=== PATIENT | male | born 1990 | race Caucasian/White ===

== ENCOUNTER 2019-10-01 12:24 | Emergency (ER) | payer MEDICAID ==
[~2019-10-01] VITALS: Ht 167.6 cm; Wt 78.0 kg
[2019-10-01 12:42] VITALS: Ht 167.6 cm; Wt 78.0 kg
[2019-10-01 14:36] LABS: BASOPHIL % 0.6 % (0-2); PLATELET COUNT 290 x10^3mcL (130-400); RED CELL DISTRIBUTION WIDTH 13.4 % (11.5-14.5)
[2019-10-01 14:50] LABS: CALCIUM 8.2 mg/dL (8.5-10.1); CARBON DIOXIDE 24.1 mmol/L (21-32); CHLORIDE SERUM 106 mmol/L (98-107); CREATININE SERUM 0.8 mg/dL (0.7-1.3); GFR1 > 60 mL/min; GLUCOSE SERUM 117 mg/dL (74-106); POTASSIUM SERUM 3.7 mmol/L (3.5-5.1); SODIUM SERUM 141 mmol/L (136-145)
[2019-10-01 14:55] LABS: ALBUMIN 3.7 g/dL (3.4-5.0); ALKALINE PHOSPHATASE 79 U/L (46-116); ALT/SGPT 54 U/L (16-63); AST/SGOT 28 U/L (15-37); BILIRUBIN TOTAL 0.1 mg/dL (0.20-1.00); TOTAL PROTEIN, SERUM 7.4 g/dL (6.4-8.2)
[2019-10-01 17:08] VITALS: BP 132/76
== END 2019-10-01 17:08 | disposition home or self-care (01) ==
LOC: ED 12:24
PROVIDERS: Student in an Organized Health Care Education/Training Program
DX: L03.114 Cellulitis of left upper limb (principal)
CPT/HCPCS: J3490; J7030; J7060

== ENCOUNTER 2019-10-02 16:37 | Emergency (ER) | payer MEDICAID ==
[~2019-10-02] VITALS: Ht 167.6 cm; Wt 80.3 kg
[2019-10-02 16:41] VITALS: BP 146/79; Ht 167.6 cm; Wt 80.3 kg
== END 2019-10-02 17:16 | disposition home or self-care (01) ==
LOC: ED 16:37
DX: L02.414 Cutaneous abscess of left upper limb (principal); I10 Essential (primary) hypertension; Z48.01 Encounter for change or removal of surgical wound dressing; Z88.2 Allergy status to sulfonamides

== ENCOUNTER 2019-10-03 11:06 | Emergency (ER) | payer MEDICAID ==
[~2019-10-03] VITALS: Ht 167.6 cm; Wt 79.4 kg
[2019-10-03 11:24] VITALS: BP 124/88; Ht 167.6 cm; Wt 79.4 kg
== END 2019-10-03 13:33 | disposition home or self-care (01) ==
LOC: ED 11:06
DX: L02.414 Cutaneous abscess of left upper limb (principal); N48.1 Balanitis; Z48.01 Encounter for change or removal of surgical wound dressing; Z88.2 Allergy status to sulfonamides